=== PATIENT | female | born 1985 | race African-American/Black ===

== ENCOUNTER 2025-06-10 15:06 | Emergency (ER) | payer SELFPAY ==
[2025-06-10 15:16] VITALS: BP 130/102; PULSE 96; RESP 20; TEMP 36.8; O2SAT 100
--- NOTE | 2025-06-10 15:17 | ED_ITS ---
HPI - Extremity Problem General Chief complaint: Extremity Problem,Nontraumatic Stated complaint: Legs/Feet Swollen Time Seen by Provider: 06/10/25 15:10 Source: patient Mode of arrival: ambulatory Limitations: no limitations History of Present Illness HPI Narrative: Patient is a 40-year-old female who presents with 1 week of leg swelling with right worse than left. Patient reports they are painful. Patient is supposed to be on hypertension medication but has not taken medication in over a month. Denies any vision changes, headache, numbness, tingling or weakness to extremities. Denies any changes of in urinary habits Related Data Home Medications ?Medication ?Instructions ?Recorded ?Confirmed ?Last Taken ?Type No Home Medications 06/10/25 06/10/25 U nknown History Allergies Allergy/AdvReac Type Severity Reaction Status Date / Time No Known Allergies Allergy Verified 06/10/25 17:38 Review of Systems Review of Systems: All systems reviewed & are unremarkable except as noted in HPI and below Constitutional: Constitutional: Denies body ache(s), Denies chills, Denies fatigue, Denies fever(s), Denies headache(s), Denies malaise and Denies weakness Eyes: Eyes: Denies blurry vision, Denies irritation and Denies loss of vision ENT: Denies otalgia, Denies headache(s), Denies nasal discharge, Denies sinus pain and Denies sore throat Cardiovascular: Cardiovascular: Denies chest pain, Denies irregular heart rhythm, Reports leg edema and Denies dyspnea Respiratory: Respiratory: Denies dyspnea Gastrointestinal: Gastrointestinal: Denies abdominal pain, Denies melena, Denies hematochezia, Denies diarrhea, Denies nausea and Denies vomiting Musculoskeletal: Musculoskeletal: Denies back pain, Denies myalgias and Denies arthralgias Integumentary/Breasts: Skin/Breast: Denies pruritus and Denies rash Neurologic: Denies headache(s), Denies loss of vision and Denies weakness Psychiatric: Psychiatric: Reports no additional psychiatric complaints Endocrine: Endocrine: Denies fatigue PMFSH Comments At time of signature, agree with nursing past medical, surgical, social and family history. There is no relevant family history pertinent to the presenting complaint. Exam Const: General: cooperative, healthy appearing, comfortable, no acute distress and well nourished Nutritional Appearance: well nourished Orientation/consciousness: patient oriented x3 Limitations: no limitations HENMT: Head: normal to inspection, normocephalic and atraumatic Ears: hearing grossly normal bilaterally and external ears normal Face/Nose/Sinus: Normal external nose present, normal facial exam and face symmetric Face and sinus: normal facial exam and face symmetric Mouth: Yes lip normal Eyes: General: appearance normal, both eyes and all related structures Alignment and Position: alignment normal and position normal Periorbital: periorbital findings normal Eyelids: eyelids normal Pupils: Equal, round and reactive pupils present EOM: EOMs intact bilaterally Neck: Neck: normal visual inspection, full ROM and supple Chest: Chest palpation & inspection: normal inspection of the chest Resp: Effort & Inspection: normal respiratory effort and able to speak in complete sentences Auscultation: clear to auscultation bilaterally Cardio: Rate: regular rate Rhythm: regular rhythm Heart sounds: S1 normal heart sound present and S2 normal heart sound present GI: Inspection: normal to inspection Skin: General skin exam: normal color and no rashes or lesions noted Neuro: General: patient oriented x3 and moves all extremities Cranial nerves: Yes Equal, round and reactive pupils present Speech: normal speech Gait exam (Neuro): Normal gait present Extrem: General: normal to inspection, full ROM and no edema Right lower extremity: lower leg Details: pitting edema Details: 2+; no erythema and no tenderness, ankle Details: edema Details: pitting and 2+; no tenderness and foot Details: edema Location: of the dorsal foot Left lower extremity: lower leg Details: pitting edema Details: 3+; no erythema and no tenderness, ankle Details: pitting edema Details: pitting and 3+; no tenderness and foot Details: edema Location: of the dorsal foot Psych: Appearance: grossly normal and well kempt Mental Status: mental status grossly normal Speech and movement: Normal speech and movement present Affect: normal affect Attitude: cooperative Thought process: Normal thought process present Course Course Emergency Course: Patient being transferred to [place] emergency department for further workup and evaluation. Patient has not been on her blood pressure medication for over 1 month and is now having 3+ edema to bilateral lower extremities. Patient also hypertensive. Not having any vision changes or headaches related to elevated blood pressure. Portions of this record may have been created with voice recognition software Level of Care: Express Care Visit Vital Signs Vital signs: Vital Signs Temperature 36.8 C 06/10/25 15:16 Pulse Rate 96 06/10/25 15:16 Respiratory Rate 20 06/10/25 15:16 Blood Pressure 130/102 H 06/10/25 15:16 Pulse Oximetry 100 06/10/25 15:16 Oxygen Delivery Room Air 06/10/25 15:16 Temperature 36.8 C 06/10/25 15:16 Pulse Rate 96 06/10/25 15:16 Respiratory Rate 20 06/10/25 15:16 Blood Pressure 130/102 H 06/10/25 15:16 Pulse Oximetry 100 06/10/25 15:16 Oxygen Delivery Room Air 06/10/25 15:16 Reviewed Transfer Transfered to: [place] Transportation: Other (Private auto) Transfer rationale: Patient has not been on her blood pressure medication for over 1 month and is now having 3+ edema to bilateral lower extremities. Patient also hypertensive. Not having any vision changes or headaches related to elevated blood pressure. Accepting physician: Any HAGER MDM - Extremity (Nontraumatic) MDM Narrative Medical decision making narrative: Patient being transferred to [place] emergency department for further workup and evaluation. Patient has not been on her blood pressure medication for over 1 month and is now having 3+ edema to bilateral lower extremities. Patient also hypertensive. Not having any vision changes or headaches related to elevated blood pressure. Differential Diagnosis Differential diagnosis: Likely cellulitis, lower extremity edema, deep vein thrombosis of lower extremity and other (Hypertensive crisis, fluid overload) Discharge Plan Discharge Clinical Impression: Lower extremity edema Patient Disposition: Acute Care Hospital Condition: Stable Patient Language: Vietnamese Prescriptions: No Action No Home Medications Follow-up/Referrals: PHYSICIAN,[employer] [Primary Care Provider, Internal Medicine] Time of Disposition: 16:23
== END 2025-06-10 16:19 | disposition short-term general hospital (02) ==
PROVIDERS: Emergency Provider Nurse Practitioner Family
DX: R60.0 Localized edema (principal); I10 Essential (primary) hypertension; Z91.148 Patient's other noncompliance with medication regimen for other reason
CPT/HCPCS: 99202; G0463

== ENCOUNTER 2025-06-10 17:36 | Emergency (ER) | payer SELFPAY ==
--- NOTE | 2025-06-10 17:42 | PC.NURSE ---
Pt. states she is leaving before receiving V.S. d/t number of people in [place]. Pt. aware that she can return at any time to be seen. GCS 15 and ambulatory with a steady gait.
== END 2025-06-10 17:42 | disposition left against medical advice (07) ==
DX: R60.0 Localized edema (principal)
CPT/HCPCS: 99199

== ENCOUNTER 2025-06-13 08:21 | Emergency (ER) | payer SELFPAY ==
[2025-06-13] VITALS (8 sets, daily range): BP systolic 121–142; BP diastolic 92–114; PULSE 73–107; RESP 14–21; TEMP 36.4; O2SAT 99–100
--- NOTE | ~2025-06-13 | XR_ITS ---
EXAMINATION: XR chest 2V, 06/13/2025 9:40 CDT HISTORY: LE edema x1 WK COMPARISON: No comparisons available. Technique: 2 views obtained. Findings: The lungs are clear, no effusion. No pneumothorax. Heart is normal size. Mediastinal and hilar contours are within normal limits. Bony thorax no acute abnormality. Impression: No acute cardiopulmonary abnormality. Reviewed, dictated and finalized at location P. Impression: No acute cardiopulmonary abnormality.
--- NOTE | ~2025-06-13 | CT_ITS ---
EXAMINATION: CT brain wo con COMPARISON: None HISTORY: headache, hypertension TECHNIQUE: Axial images were obtained through the brain without IV contrast. CT scan performed using dose optimization techniques including the following automated exposure control; adjustment of mA and/or kV; use of iterative reconstruction technique. Automatic exposure control was used to reduce radiation dose. Permanent radiation dose record is archived to PACS. FINDINGS: No acute infarct or parenchymal hemorrhage. No abnormal mass or mass effect. No midline shift. No extra-axial fluid collections. No hydrocephalus. . Mastoid air cells unremarkable. Sinuses and orbits unremarkable. No acute fracture. No significant facial or scalp soft tissue swelling evident. No radiopaque foreign body is seen. Impression: 1.No acute intracranial abnormality. Reviewed, dictated and finalized at location P. Impression: 1.No acute intracranial abnormality.
--- NOTE | 2025-06-13 08:39 | PC.NURSE ---
patient has bilateral lower extremity non-pitting edema
--- NOTE | 2025-06-13 09:24 | ECG_ITS ---
Test Date: 2025-06-13 09:49:37 Measurements Intervals [place] Rate: 70 P: 60 MO: 134 QRS: 37 QRSD: 85 T: 37 QT: 406 QTc: 440 Interpretive Statements SINUS RHYTHM WITH SINUS ARRHYTHMIA POSSIBLE RIGHT ATRIAL ENLARGEMENT T WAVE ABNORMALITY IN ANTERIOR LEADS- CONSIDER ISCHEMIA ABNORMAL ECG No previous ECG available for comparison Electronically Signed On 06-13-2025 09:59:58 CDT by Luis Felipe Chahal D.O.
--- NOTE | 2025-06-13 09:30 | ED.RECABL ---
HPI - Recheck/Abnormal Lab/Rx General Chief Complaint: Recheck/Abnormal Lab/Rx Stated Complaint: elevated bp Time Seen by Provider: 06/13/25 09:12 Source: patient Mode of arrival: ambulatory Limitations: no limitations History of Present Illness HPI narrative: This is a 40 year old female that presents to the ER for elevated blood pressure. Reports this has been ongoing over the last couple of months. She used to take hydrochlorothiazide for this, but stopped several years ago. Reports associated lower extremity edema, some shortness of breath. Also reports headaches. Denies vision changes, vomiting, focal numbness, weakness. Related Data Allergies Allergy/AdvReac Type Severity Reaction Status Date / Time No Known Allergies Allergy Verified 06/13/25 08:24 Review of Systems Review of Systems: All systems reviewed & are unremarkable except as noted in HPI and below Exam Narrative: GENERAL: Well-appearing, well-nourished, and in no acute distress. HEAD: Normocephalic, atraumatic. EYES: PERRLA and EOMI. ENT: Nares clear, no rhinorrhea or epistaxis. Mucous membranes moist. Oropharynx without tonsillar hypertrophy exudate or other lesions. Bilateral TMs pearly rowell non-bulging NECK: Supple. No adenopathy or masses. CHEST: Clear to auscultation. No respiratory distress. No wheezes rales or rhonchi HEART: Regular rate and rhythm. No murmur heard. Normal peripheral pulses. EXTREMITIES: Normal range of motion. No edema. SKIN: Warm, dry, no rash. NEURO: No focal deficits. Alert and oriented x3. PSYCH: Normal mood and affect Course Vital Signs Vital signs: Vital Signs Temperature 97.6 F 06/13/25 08:30 Pulse Rate 107 H 06/13/25 08:30 Respiratory Rate 15 06/13/25 08:30 Blood Pressure 142/114 H 06/13/25 08:30 Pulse Oximetry 100 06/13/25 08:30 Oxygen Delivery Room Air 06/13/25 08:30 Temperature 97.6 F 06/13/25 08:30 Pulse Rate 81 06/13/25 12:30 Respiratory Rate 14 06/13/25 12:30 Blood Pressure 130/92 H 06/13/25 12:30 Pulse Oximetry 100 06/13/25 12:30 Oxygen Delivery Room Air 06/13/25 08:30 MDM - Recheck/Abnormal Lab/Rx MDM Narrative Medical decision making narrative: Patient presents to the ER for elevated blood pressure, lower extremity edema, headaches. Blood pressures 120s-140s/90s-100s. CBC shows anemia, which is chronic for patient. Metabolic panel without concerning findings. Chest x-ray without acute cardiopulmonary abnormality. CT brain is normal. D dimer is not elevated. Patient will be re-started on HCTZ. Instructed to have follow up with PCP for further evaluation/management Differential Diagnosis Differential diagnosis: Likely other (hypertension, hypertensive urgency, venous insufficiency, DVT) Lab Data Attestation: I reviewed the patient's lab results. 06/13/25 10:45 06/13/25 10:45 Labs: Lab Results 06/13/25 06/13/25 Range/Units 10:45 11:17 WBC 6.4 (4.5-10.0) K/mm3 RBC 3.80 L (4.2-5.4) M/mm3 Hgb 8.9 L (12.0-15.0) g/dL Hct 29.9 L (37.0-47.0) % MCV 78.7 L (80-100) fl MCH 23.4 L (26-34) pg MCHC 29.8 L (32-36) g/dl RDW 18.1 H (11.5-14.5) % Plt Count 315 (150-375) k/mm3 MPV 10.0 (7.4-10.4) fl Immature Gran % (Auto) 0.3 (0-0.5) % Neut % (Auto) 58.7 (45.5-73.1) % Lymph % (Auto) 30.1 (18.3-44.2) % [place] % (Auto) 6.6 (2.6-8.5) % Eos % (Auto) 3.8 (0-4.4) % Baso % (Auto) 0.5 (0.2-1.2) % Lymph # (Auto) 1.91 (0.9-3.2) K/mm3 [place] # (Auto) 0.4 (0.1-0.6) K/mm3 Eos # (Auto) 0.2 (0-0.3) K/mm3 Baso # (Auto) 0.0 (0.0-0.1) K/mm3 Abs Immat Gran (auto) 0.02 (0.00-0.031) K/mm3 Absolute Neuts (auto) 3.7 (1.3-6.7) K/mm3 Absolute Nucleated RBC 0.000 (0.0-0.012) K/mm3 Band Neutrophils % Not Reportable Nucleated RBC % 0.0 (0.0-0.2) % Platelet Estimate Adequate (Adequate) Hypochromasia 2+ Anisocytosis 1+ Schistocytes None seen PT 14.4 (11.1-14.7) Seconds INR 1.1 APTT 26.1 (22.3-36.8) Seconds D-Dimer < 0.22 (<0.48) ug/mL Sodium 136 L (137-145) mmol/L Potassium 3.7 (3.4-5.0) mmol/L Chloride 104 (98-107) mmol/L Carbon Dioxide 24 (22-30) mmol/L Anion Gap 8 (4-12) mmol/L BUN 5 L (7-17) mg/dL Creatinine 0.67 L (0.7-1.0) mg/dL Estim Creat Clear Calc 99 ml/min Estimated GFR > 60 (59 - ) Glucose 95 (65-110) mg/dL Calcium 8.7 (8.4-10.2) mg/dL Total Bilirubin 0.6 (0.2-1.3) mg/dL AST 29 (14-36) U/L ALT 20 (6-35) U/L Alkaline Phosphatase 62 (38-126) U/L NT-Pro-B Natriuret Pep 624 H (19.9-100) pg/mL Total Protein 7.2 (6.3-8.2) g/dL Albumin 4.1 (3.5-5.1) g/dL Imaging Data Radiologist's impression: ITS Impressions Head CT 06/13/25 09:41 Impression: 1.No acute intracranial abnormality. Chest X-Ray 06/13/25 09:47 Impression: No acute cardiopulmonary abnormality. ECG Data EKG #1: ECG completion date: 06/13/25 EKG Interpretation: normal rate, sinus rhythm, no ST changes and normal QT Critical Care Time Critical Care Time Critical Care Time: No Discharge Plan Discharge Clinical Impression: Edema of lower extremity Anemia Qualifiers: Anemia type: unspecified type Qualified Code(s): D64.9 - Anemia, unspecified Hypertension Qualifiers: Hypertension type: unspecified Qualified Code(s): I10 - Essential (primary) hypertension Patient Disposition: Home Condition: Stable Instructions: Chronic Hypertension (ED), Leg Edema (ED), Anemia (ED) Additional Instructions: Return to the emergency department if you experience fever, chest pain, shortness of breath, redness and swelling of your legs, or any other symptoms that are concerning to you. Wear compression stockings. Elevate your legs while seated. Take Hydrochlorothiazide as prescribed Follow up with your primary care doctor for further evaluation/management Patient Language: Argentine Prescriptions: New hydrochlorothiazide 12.5 mg tablet 12.5 mg PO DAILY 14 Days Qty: 14 0RF Follow-up/Referrals: PHYSICIAN NOT ON STAFF,NONSTAFF [Primary Care Provider]
--- OUTSIDE RECORDS SUMMARY | 2025-06-13 10:09 | XMS_ITS | Clinical Summary ---
Author Organization [employer] [facility] Address [address] [facility] [place] [address] Phone Care Team Providers Care Net Lead Developer Name Role Phone Gregoria Laura MD Primary Care Provider [phone] Allergies No known active allergies Medications MULTIVITAMIN ORAL Take by mouth. Activ e boric acid 600 mg vaginal suppository Insert 1 Suppository (600 mg) vaginally daily at bedtime. Patient to use 5 days out of each month prophylaxis. 15 Suppository 3 03/15/20 25 Active Active Problems Problem Noted Date Diagnosed Date Anemia 06/10/2022 History of adenomatous polyp of colon 12/28/2016 Overview (06/10/2022): Dr. Garay/GI 12/13 (40 mm pedunculated polyp at 25 cm) MRSA (methicillin resistant Staphylococcus aureu s) 02/13/2012 Overview (02/18/2012): left axilla Encounters Date Type Department Care Team Description 05/28/2025 External Device Data ST[facility] ABSTRACTION Provider, Abstract 05/15/2025 External Device Data [facility] ABSTRACTION Provider, Abstract 04/23/2025 External Device Data [facility] ABSTRACTION Provider, Abstract 04/17/2025 External Device Data [facility] ABSTRACTION Provider, Abstract 04/16/2025 External Device Data [facility] ABSTRACTION Provider, Abstract 03/26/2025 External Device Data [facility] ABSTRACTION Provider, Abstract 03/26/2025 External Device Data [facility] ABSTRACTION Provider, Abstract 03/26/2025 External Device Data [facility] ABSTRACTION Provider, Abstract 03/21/2025 9:30 AM CDT - 03/21/2025 9:45 AM CDT Hospital Encounter [facility] [address] [place] [address] Discharge Disposition: Home or Self Care 03/15/2025 Results Follow-Up Formerly [facility] [address] [facility] [address] Gilma Cottrell NP HIV DETECTION W/REFLX CONFIRMATION, HEPATITIS C ANTIBODY W REFLEX, HEPATITIS B SURFACE ANTIGEN, Additional followed-up results: 3 03/14/2025 2:40 PM CDT Office Visit Formerly [facility] [address] [place] [address] Gilma Cottrell, SHILPA Screening for STDs (sexually transmitted diseases) (Primary Dx); Vaginal discharge from Last 3 Months Immunizations Immunization Administration Dates Next Due (ADACEL/BOOSTRIX)(10 YR UP) TDAP VACCINE, 0.5ML, IM 01/04/2025 Family History Medical History Relation Name Comments Hypertension Brother Hypertension Father Other Father Stomach Cancer Maternal Grandmother Healthy Mother Hypertension Mother Breast Cancer Paternal Grandmother Relation Name Status Comments Brother Father Maternal Grandmother Mother Alive Paternal Grandmother Social History Tobacco Use Types Packs/Day Years Used Date Smoking Tobacco: Every Day Cigarettes 0.3 7 Smokeless Tobacco: Never Tobacco Cessation:Ready to Q uit: Not Asked Alcohol Use Standard Drinks/Week Comments Yes 0 (1 standard drink = 0.6 oz pur e alcohol) occasionally Feeling Safe Answer Date Recorded Are you in a relationship wi th someone who hurts you emotionally and/or physically? No 01/04/2025 Comments No Sex and Gender Information Value Date Recorded Sex Assigned at Not on file Legal Sex Female 6:08 AM DRAWING HAND Gender Identity Not on file Sexual Orientation Not on file Occupation Industry Job Start Date Job End Date Not on file Not on file Not on file Not on file Not on file Not on file Not on file Not on file Last Filed Vital Signs Vital Sign Reading Time Taken Comments Blood Pressure 124/86 03/14/2025 2:51 PM CDT Pulse 58 03/14/2025 2:51 PM CDT Temperature 36.7 C (98 F) 01/04/2025 11:48 AM CDT Respiratory Rate 18 03/14/2025 2:51 PM CDT Oxygen Saturation 100% 03/14/2025 2:51 PM CDT Inhaled Oxygen Concentration - - Weight 79.4 kg (175 lb) 03/14/2025 2:51 PM CDT Height 165.1 cm (5' 5) 03/14/2025 2:51 PM CDT Body Mass Index 29.12 03/14/2025 2:51 PM CDT Plan of Treatment Health Maintenance Due Date Last Done Comments Pre-Diabetes and Diabetes Screening 1987 HPV VACCINES (1 - 3-dose SCD M series) 2014 INFLUENZA VACCINE (#1) 2025 Preventative Visit-Managed Medicaid 05/15/2025 05/14/2024, 06/10/2022 PAP SMEAR 05/14/2027 05/14/2024, 06/10/2022 CERVICAL CANCER SCREENING 05/14/2029 HPV/Cotest (21-29) 05/14/2029 05/14/2024, 06/10/2022 HPV/Cotest (30-65) 05/14/2029 05/14/2024, 06/10/2022 DTAP/TDAP/TD VACCINES (9 - T d or Tdap) 01/04/2035 01/04/2025, 09/30/2011, 10/06/2009, Additional history exists HEPATITIS B VACCINES Completed 11/25/1999, 05/23/1999, 04/22/1999 Procedures Procedure Name Priority Date/Time Associated Diagnosis Comments VAGINOSIS/VAGINITIS PANEL BASIC Routine 03/14/2025 3:16 PM CDT Vaginal discharge HSV TYPE 1 AND 2 IGG ANTIBODY Routine 03/14/2025 3:12 PM CDT Screening for STDs (sexually transmitted diseases) RPR Routine 03/14/2025 3:12 PM CDT Screening for STDs (sexually transmitted diseases) HEPATITIS B SURFACE ANTIGEN Routine 03/14/2025 3:12 PM CDT Screening for STDs (sexually transmitted diseases) HEPATITIS C ANTIBODY Routine 03/14/2025 3:12 PM CDT Screening for STDs (sexually transmitted diseases) HIV DETECTION W/REFLX CONFIRMATION Routine 03/14/2025 3:12 PM CDT Screening for STDs (sexually transmitted diseases) CERV/VAG CYTO AGE BASED SCREEN PAP W CT/NG Routine 05/14/2024 11:46 AM CDT Well woman exam with routine gynecological exam Screening for STDs (sexually transmitted diseases) from Last 3 Months or Most Recently Relevant to Health Maintenance Results * (ABNORMAL) VAGINOSIS/VAGINITIS PANEL BASIC (03/14/2025 3:16 PM CDT) Pathologist [facility] BACTERIAL VAGINOSIS POSITIVE(A) NEGATIVE [facility] LASHONDA SPECIES NOT DETECTED NOT DETECTED [facility] LASHONDA GLABRATA NOT DETECTED NOT DETECTED [facility] Comment: Lashonda species C. albicans, C. tropicalis, C. parapsilosis, and/or C. dubliniensis can be detected, but not differentiated, in the Lashonda spp. result. TRICHOMONAS VAGINALIS (TV), TMA NOT DETECTED NOT DETECTED [facility] Comment: Test Performed at: [facility] [address] [place] [address] Nikki Chowdhury MD Genital SPECIMEN FROM VAGINA / Unknown 03/14/2025 3:16 PM CDT 03/15/2025 5:13 AM CDT Gilma Cottrell NP MICROBIOLOGY - GENERAL ORDERABLE S Final Result [facility] [phone] [facility] [address] [place] [address] * HIV DETECTION W/REFLX CONFIRMATION (03/14/2025 3:12 PM CDT) [facility] RESULT [facility] Comment: [facility] component Name and Code: HIV FINAL INTERPRETATION [[id number]] HIV Negative HIV-1 antigen and HIV-1/HIV-2 antibodies were not detected. There is no laboratory evidence of HIV infection. HIV-1/2 AG AND AB SCREEN NON-REACT IVA NON-REACT IVA [facility] Comment: Test Performed at: [facility] [address] Nikki Chowdhury MD Blood 03/14/2025 3:12 PM CDT 03/14/2025 3:13 PM CDT us Gilma Cottrell NP CHEMISTRY ORDERABLES Final Resul t [facility] [phone] [facility] [address] * (ABNORMAL) HSV TYPE 1 AND 2 IGG ANTIBODY (03/14/2025 3:12 PM CDT) [facility] HSV1 IGG <0.90 index [facility] HSV2 IGG >23.00(H) index [facility] Comment: Index Interpretation ----- <0.90 Negative 0.90-1.09 Equivocal >1.09 Positive This assay utilizes recombinant type-specific antigens to differentiate HSV-1 from HSV-2 infections. A positive result cannot distinguish between recent and past infection. If recent HSV infection is suspected but the results are negative or equivocal, the assay should be repeated in 4-6 weeks. The performance characteristics of the assay have not been established for pediatric populations, immunocompromised patients, or screening. For additional information, please refer to http://education.AdECN.Root4/faq/QYN813 (This link is being provided for informational/ educational purposes only.) Test Performed at: [facility] [address] [place] [address] Nikki Chowdhury MD Blood 03/14/2025 3:12 PM CDT 03/14/2025 3:13 PM CDT Gilma Cottrell EXTENSION EDUCATOR CHEMISTRY ORDERABLES COM Final R esult Performing Organization Address [facility] Co de Phone Number [facility] [phone] [facility] [address] * HEPATITIS B SURFACE ANTIGEN (03/14/2025 3:12 PM CDT) Pathologist [facility] HEPATITIS B SURFACE AG NON-REACTI VE NON-REACTI VE [facility] Comment: For additional information, please refer to http://[employer] Network (TEN).Sunpreme/faq/IYP951 (This link is being provided for informational/ educational purposes only.) Test Performed at: [facility] [address] Nikki Chowdhury MD Blood 03/14/2025 3:12 PM CDT 03/14/2025 3:13 PM CDT Gilma Cottrell EXTENSION EDUCATOR CHEMISTRY ORDERABLES Final Resul t Performing Organization Address [facility] Co de Phone Number [facility] [phone] [facility] [address] * HEPATITIS C ANTIBODY W REFLEX (03/14/2025 3:12 PM CDT) Pathologist [facility] HEPATITIS C AB NON-REACTI VE NON-REACT IVA [facility] Comment: HCV antibody was non-reactive. There is no laboratory evidence of HCV infection. In most cases, no further action is required. However, if recent HCV exposure is suspected, a test for HCV RNA (test code 58602) is suggested. For additional information please refer to http://[employer] Network (TEN).Sunpreme/faq/NZB39f2 (This link is being provided for informational/ educational purposes only.) Test Performed at: [facility] [address] Nikki Chowdhury MD Blood 03/14/2025 3:12 PM CDT 03/14/2025 3:13 PM CDT Gilma Gillilanduer EXTENSION EDUCATOR CHEMISTRY ORDERABLES Final Resul t Performing Organization Address [facility] Co de Phone Number [facility] [phone] [facility] [address] * RPR (03/14/2025 3:12 PM CDT) RPR NON-REACTI VE NON-REACTI VE [facility] Comment: No laboratory evidence of syphilis. If recent exposure is suspected, submit a new sample in 2-4 weeks. Test Performed at: [facility] [address] Nikki Chowdhury MD Blood 03/14/2025 3:12 PM CDT 03/14/2025 3:13 PM CDT Gilmacatalina Cottrell EXTENSION EDUCATOR CHEMISTRY ORDERABLES Final Resul t Performing Organization Address City/[facility]/ZIP Co de Phone Number [facility] [phone] [facility] [address] * CERV/VAG CYTO AGE BASED SCREEN PAP W CT/NG (05/14/2024 11:46 AM CDT) COMMENT (PAP): [facility] Comment: This order for age-based cervical cancer and STI screening follows ACOG guidelines(PB 168, 140, ZXT370). See individual assays for performing site location. CLINICAL INFORMATION [facility] Comment:None given LAST MENSTRUAL PERIOD [facility] Comment:05/08/2024 PREV PAP: [facility] Comment:NONE GIVEN PREV BX: [facility] Comment:NONE GIVEN SOURCE [facility] Comment:Endocervix ADEQUACY: [facility] Comment: Satisfactory for evaluation. Endocervical/transformation zone component present. PAP INTERP [facility] Comment: Cytology Results: Negative for intraepithelial lesion or malignancy. COMMENT (PAP TEST) [facility] Comment: This Pap test has been evaluated with computer assisted technology. Microscopic features present suggestive of an interfering substance, including cellular debris, mucus, or possible lubricant (patient or provider use). Use of lubricant is not recommended. AUTOMATION APPLICATION ENGINEER: [facility] Comment: CBN, CT(ASCP) CT Screening location: [address] [address] REVIEW AUTOMATION APPLICATION ENGINEER: [facility] Comment: AUC, CT(ASCP) CT Screening Location: [address] [address] EXPLANATORY NOTE Que [facility] Comment: EXPLANATORY NOTE: The Pap is a screening test for cervical cancer. It is not a diagnostic test and is subject to false negative and false positive results. It is most reliable when a satisfactory sample, regularly obtained, is submitted with relevant clinical findings and history, and when the Pap result is evaluated along with historic and current clinical information. HPV E6/E7 Not Detected Not Detected [facility] Comment: Methodology: Data Librarian-Mediated Amplification This assay detects E6/E7 viral messenger RNA (mRNA) from 14 high-risk HPV types (16,18,31,33,35,39,45,51,52,56,58,59,66,68). Cervical sources are required for HPV testing. If a vaginal source from a patient who has had a total hysterectomy with removal of cervix was submitted, please contact the testing laboratory for alternative testing options. For additional information, please refer to http://The [employer] Network (TEN).Sunpreme/faq/IMQ529w9 (This link if provided for information/ educational purposes only.) CHLAMYDIA TRACHOMATIS RNA, TMA, UROGENITAL NOT DETECTED NOT DETECTED [facility] NEISSERIA GONORRHOEAE RNA, TMA, UROGENITAL NOT DETECTED NOT DETECTED [facility] COMMENT INFECTIOUS DISEASE [facility] Comment: The analytical performance characteristics of this assay, when used to test SurePath(TM) specimens have been determined by [facility]. The modifications have not been cleared or approved by the FDA. This assay has been validated pursuant to the CLIA regulations and is used for clinical purposes. For additional information, please refer to https://education.Sunpreme/faq/TTY757 (This link is being provided for information/ educational purposes only.) Test Performed at: [facility] [address] [place] [address] Guillaume Kam Genital SWAB OF ENDOCERVIX / Unknown 05/14/2024 11:46 AM CDT 05/16/2024 12:29 AM CDT Gilma Cottrell EXTENSION EDUCATOR PATHOLOGY/CYTOLOGY ORDERABLES Fi nal Result [facility] [phone] [facility] [address] [place] [address] from Last 3 Months or Most Recently Relevant to Health Maintenance Insurance [facility] MEDICAID Care Teams Net Lead Developer Relationship Specialty Start Date End Date Gregoria Laura MD PCP - General Geriatric Medicine 09/18/20
--- OUTSIDE RECORDS SUMMARY | 2025-06-13 10:09 | XMS_ITS | Clinical Summary ---
Author Organization [facility] [employer] Address [address] [place] [address] Care Team Providers Care Big Machine Consultant Name Role Phone Leatha Rodriguez RN Unavailable [phone] Gregoria Laura MD Primary Care Provider [phone] Source Comments [facility] [employer]non-owned Affiliates and Associated Physician Practices is amultiple site organization consisting of ambulatory clinics and hospital sitesin [place], [place], [place] and [place]. This disclosure is being madepursuant to the Care Everywhere program and may not contain all information available regarding this patient. Last updated 18.[facility] [employer] Allergies No known active allergies Medications * This document contains information received from the source organization and may not represent a complete record from that organization. * Be aware that medications may not be up to date on this document. Alwaysverify current medications with the patient. guaiFENesin ER 12hr (MUCINEX) 600 MG tablet Take 1 Tab by mouth every 12 hours 7 Active Additional Information Patient not taking.Reported on 03/02/2019 guaiFENesin-cod eine (ROBITUSSIN AC) 100-10 MG/5ML syrup Take 5 mL by mouth every 4 hours as needed for Cough (for cough) 210 mL 7 Active Additional Information Patient not taking.Reported on 03/02/2019 predniSONE (DELTASONE) 10 MG tablet Take 4 tablets daily for 4 days, take 3 tablets daily for 2 days, take 2 tablets daily for 2 days, then take 1 tablet daily for 2 days 28 tablet 7 Active Additional Information Patient not taking.Reported on 03/02/2019 albuterol HFA (PROVENTIL;VENT KEITH;PROAIR) 108 (90 BASE) MCG/ACT inhaler Inhale 2 puffs by mouth every 4 hours as needed for Shortness of Breath or Wheezing 1 Inhaler 1 7 Active Additional Information Patient not taking.Reported on 03/02/2019 ondansetron, disintegrating, (ZOFRAN ODT) 4 MG tablet Take 1 tablet by mouth every 6 hours as needed for Nausea/Vomiting Allow tablet to dissolve on the tongue 20 tablet 8 Active Additional Information Patient not taking.Reported on 03/02/2019 amoxicillin (AMOXIL) 500 MG capsule Take 500 mg by mouth 3 times daily Active oxyCODONE-aceta minophen (PERCOCET) 5-325 MG tablet Take 1 tablet by mouth every 6 hours as needed for Pain 15 tablet 9 Active naproxen (NAPROSYN) 500 MG tablet Take 1 (one) tablet by mouth 2 times daily as needed for Pain 20 tablet 1 Active lidocaine viscous (XYLOCAINE) 2 % viscous solution 5 mL by Mouth/Throat route 4 times daily as needed for Pain 100 mL 1 Active prochlorperazin e (Compazine) 10 MG tablet Take 1 (one) tablet by mouth every 8 hours as needed for Nausea/Vomiting 10 tablet 3 Active Active Problems Problem Noted Date Diagnosed Date History of adenomatous polyp of colon - large po lyp 12/28/2016 Overview (12/28/2016): Dr. Garay/GI 12/13 (40 mm pedunculated polyp at 25 cm) Immunizations Immunization Administration Dates Next Due TDAP (7yrs+) 09/30/2011,10/06/2009 Family History Medical History Relation Name Comments Cancer Maternal Aunt Heart Failure Maternal Grandfather Hypertension Maternal Grandfather Hypertension Maternal Grandmother Hypertension Mother Cancer Paternal Grandmother Relation Name Status Comments Maternal Aunt Maternal Grandfather Maternal Grandmother Mother Paternal Grandmother Social History Tobacco Use Types Packs/Day Years Used Date Smoking Tobacco: Some Days Cigarettes 0.3 7 Smokeless Tobacco: Never Tobacco Cessation:Ready to Q uit: No; Counseling Given: Yes Alcohol Use Standard Drinks/Week Comments Yes 0 (1 standard drink = 0.6 oz pur e alcohol) Comments No Sex and Gender Information Value Date Recorded Sex Assigned at Not on file Legal Sex Female 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 Gender Identity Not on file Sexual Orientation Not on file Last Filed Vital Signs Vital Sign Reading Time Taken Comments Blood Pressure 157/101 03/04/2023 6:00 PM CDT Pulse 65 03/04/2023 3:38 PM CDT Temperature 36.7 C (98.1 F) 03/04/2023 3:38 PM CDT Respiratory Rate 18 03/04/2023 3:38 PM CDT Oxygen Saturation 100% 03/04/2023 6:00 PM CDT Inhaled Oxygen Concentration - - Weight 81.6 kg (180 lb) 03/04/2023 3:38 PM CDT Height 165.1 cm (5' 5) 03/04/2023 3:38 PM CDT Body Mass Index 29.95 03/04/2023 3:38 PM CDT Plan of Treatment Health Maintenance Due Date Last Done Comments HIV SCREENING 2002 HEPATITIS C SCREENING 01/12/2005 HEPATITIS B VACCINE (1 of 3 - 19+ 3-dose series) 2006 PNEUMOCOCCAL VACCINE (1 of 2 - PCV) 2006 PAP SMEAR 01/18/2008 HPV VACCINE (1 - 3-dose SCDM series) 2014 DTAP/TDAP/TD VACCINES (3 - T d or Tdap) 09/30/2021 09/30/2011, 10/06/2009 DEPRESSION SCREENING 08/29/2024 COVID-19 VACCINE ( - 2023-2 5 season) 2025 INFLUENZA VACCINE (#1) 2025 ZOSTER VACCINE (1 of 2) 2037 HIB VACCINE Aged Out No longer eligi ble based on patient's age to complete this topic MENINGOCOCCAL (Group B) VACCINE SHARED DECISION-MAKING Aged Out No longer eligible based on patient's age to complete this topic MENINGOCOCCAL GROUPS A/C/Y/W VACCINE Aged Out No longer eligible b ased on patient's age to complete this topic Insurance ([place]) [address] [place] [address] [place] [id number] MEDICAID [facility] Address: [address] [place] [address] Advance Directives * Full Code (Latest Code Status on File) Date Activated Date Inactivated Comments 01/29/2017 11:40 AM 01/30/2017 6:49 PM * Full Code Date Activated Date Inactivated Comments 01/28/2017 8:43 PM 01/29/2017 11:40 AM * Full Code Date Activated Date Inactivated Comments 12/21/2016 9:04 PM 12/24/2016 7:05 PM * Full Code Date Activated Date Inactivated Comments 02/17/2016 6:36 AM 02/19/2016 5:04 PM * Full Code Date Activated Date Inactivated Comments 09/09/2015 4:26 PM 09/09/2015 6:49 PM Care Teams Big Machine Consultant Relationship Specialty Start Date End Date Gregoria Laura MD PCP - General Internal Medicine 09/30/20 Leatha Rodriguez, RN Manager Fashion 12/23/16
[2025-06-13 10:53] LABS: Hematocrit 29.9 % (37.0-47.0); Hemoglobin 8.9 g/dL (12.0-15.0); Immature Granulocyte Percent A 0.3 % (0-0.5); Lymphocytes Absolute Auto 1.91 K/mm3 (0.9-3.2); Mean Corpuscular HGB Conc 29.8 g/dl (32-36); Mean Corpuscular Hemoglobin 23.4 pg (26-34); Mean Corpuscular Volume 78.7 fl (80-100); Nucleated Red Blood Cells Absolute Auto 0.000 K/mm3 (0.0-0.012); Nucleated Red Blood Cells Perc 0.0 % (0.0-0.2); Platelet Count Result 315 k/mm3 (150-375); Red Blood Count 3.80 M/mm3 (4.2-5.4); White Blood Count 6.4 K/mm3 (4.5-10.0)
[2025-06-13 11:10] LABS: INR 1.1; Partial Thromboplastin Time 26.1 Seconds (22.3-36.8); Prothrombin Time 14.4 Seconds (11.1-14.7)
[2025-06-13 11:12] LABS: Anisocytosis 1+; Hypochromasia 2+
[2025-06-13 11:13] LABS: Schistocytes None Seen
[2025-06-13 11:15] LABS: Alanine Aminotransferase 20 U/L (6-35); Albumin Level 4.1 g/dL (3.5-5.1); Alkaline Phosphatase 62 U/L (38-126); Anion Gap 8 mmol/L (4-12); Aspartate Amino Transferase 29 U/L (14-36); Bilirubin,Total 0.6 mg/dL (0.2-1.3); Blood Urea Nitrogen 5 mg/dL (7-17); Calcium 8.7 mg/dL (8.4-10.2); Carbon Dioxide 24 mmol/L (22-30); Chloride 104 mmol/L (98-107); Estimated CRCL calculation 99 ml/min; Estimated Glomerular Filt Rate > 60; Glucose 95 mg/dL (65-110); Potassium 3.7 mmol/L (3.4-5.0); Sodium 136 mmol/L (137-145); Total Protein 7.2 g/dL (6.3-8.2)
[2025-06-13 11:18] LABS: NT Pro B Type Natriuretic Pept 624 pg/mL (19.9-100)
== END 2025-06-13 12:31 | disposition home or self-care (01) ==
PROVIDERS: Emergency Provider Physician Assistant
DX: I10 Essential (primary) hypertension (principal); R60.0 Localized edema; D64.9 Anemia, unspecified; R94.31 Abnormal electrocardiogram [ECG] [EKG]
CPT/HCPCS: 36415; 70450; 71046; 80053; 83880; 85025; 85380; 85610; 85730; 93005; 99284